=== PATIENT | female | born 1975 | race Hispanic/Latino ===

== ENCOUNTER 2018-01-15 15:47 | Emergency (ER) | payer SELFPAY ==
[~2018-01-15] VITALS: Ht 170.2 cm; Wt 86.2 kg
[~2018-01-15 15:47] MED LIST: ASPIRIN81 M4 PO; ATORVASTATIN CA40 M1 PO; LIPITOR20 M2 PO; TOPROL XL25 M1 PO
[2018-01-15 15:59] VITALS: BP 131/83
[2018-01-15] MEDS ORDERED: MULTIVITAMINS1 EAC9 PO (17:01)
--- NOTE | 2018-01-15 17:05 | ED EAR COMPLAINT ---
History of Present Illness General Chief Complaint: Ear Complaints Stated Complaint: L EAR CLOGGED Source: patient Exam Limitations: no limitations Vital Signs & Intake/Output Vital Signs & Intake/Output Vital Signs Date Time Temp Pulse Resp B/P B/P Pulse O2 O2 Flow FiO2 Mean Ox Delivery Rate 01/15 1559 97.1 92 18 131/83 98 Room Air Allergies Coded Allergies: almond (Severe, 07/30/16) apple (Severe, 07/30/16) Reconcile Medications Multiple Vitamin (Multivitamins) 1 EACH TABLET 1 TAB PO DAILY VITAMIN ( Reported) Triage Note: PT TO TRIAGE WITH COMPLAINTS OF L EAR BEING CLOGGED AND SINUS PRESSURE. PT BOUGHT OTC EAR WAX REMOVAL KIT YESTERDAY AND HAD NO RESULTS Triage Nurses Notes Reviewed? yes Onset: Gradual Duration: day(s): (2) Timing: remote history Injury Environment: home Severity: moderate Severity Numbers: 7 No Modifying Factors: none : No Patient currently breastfeeds: No HPI: Patient is a 42-year-old female presenting to the emergency Department chief complaint of left ear clot that started yesterday evening. Tried using over-the -counter drops without relief. Pain is moderate. Achy and throbbing. Pain does not radiate. Patient also reports muffled hearing. History similar symptoms with cerumen impaction in the past. No nausea vomiting fever chills chest pain or shortness of breath. Denies any discharge in the area. She does report that symptoms worsen after she was cleaning her ear with a face cloth and sticking in her ear. (Marleny Anthony) Past History Travel History Traveled to [place] past 21 day No Medical History Any Pertinent Medical History? see below for history Neurological: TIA EENT: NONE Cardiovascular: NONE Respiratory: NONE Gastrointestinal: NONE Hepatic: NONE Renal: NONE Musculoskeletal: NONE Psychiatric: NONE Endocrine: NONE History of MRSA: No History of VRE: No History of CDIFF: No Surgical History Surgical History: none, N Psychosocial History Services at Home None What is your primary language German Tobacco Use: Current Daily Use Daily Tobacco Use Amount/Type: => 5 Cigarettes daily ETOH Use: denies use Illicit Drug Use: denies illicit drug use Family History Family History, If Any: MOTHER FH: hypertension Hx Contributory? No (Marleny Anthony) Review of Systems Review of Systems Constitutional: Reports: no symptoms. Comments Review of systems: See HPI, All other systems negative. Constitutional, no chills fever or weight loss HEENT: No visual changes no sore throat no congestion Cardiovascular: No chest pain ,palpitation , orthopnea Skin, no jaundice no rashes Respiratory: No dyspnea cough sputum or hemoptysis GI: No nausea no vomiting Muscle skeletal: no back pain, no neck pain, Neurologic: No numbness Immunology: No splenectomy or history of AIDS (Marleny Anthony) Physical Exam Physical Exam General Appearance: well developed/nourished, no apparent distress, alert, awake , comfortable Ears: Left: other (cerumen impaction). Comments: Well-developed well-nourished person in no acute distress HEENT: Pupils equally round and reactive to light and accommodation. Nose is atraumatic. External auditory canal and tympanic membrane clear on the right, external canal on the left is blocked with cerumen. Unable to visualize TM. Pharynx normal. No swelling or edema. Neck: Normal inspection Respiratory: No respiratory distress. Extremity: No edema Neuro: Alert oriented x3 Skin: No appreciable rash on exposed skin, skin is warm and dry. Psych: Mood and affect is normal, memory and judgment is normal. (Marleny Anthony) Progress Differential Diagnoses I considered the following diagnoses in my evaluation of the patient: Scerumen impaction, otitis media, otitis externa Plan of Care: Patient's ear was irrigated with saline, able to flush her external canal. TM is clear. Small abrasion of the external canal after being irrigated. Patient tolerated procedure well. Initial ED EKG: none (Marleny Anthony) Departure Departure Time of Disposition: 1713 Disposition: HOME OR SELF CARE Condition: Stable Clinical Impression Primary Impression: Cerumen impaction Qualifiers: Laterality: left Qualified Code: H61.22 - Impacted cerumen, left ear Referrals: Gabriel Torres MD (PCP/Family) Additional Instructions: Follow-up with your primary care physician, call to make an appointment. Return for worsening symptoms or concerns. Departure Forms: Customer Survey General Discharge Information (Marleny Anthony) PA/HIV CTS SPECIALIST Co-Sign Statement Statement: ED Attending supervision documentation- [] I saw and evaluated the patient. I have also reviewed all the pertinent lab results and diagnostic results. I agree with the findings and the plan of care as documented in the PA's/HIV CTS SPECIALIST's documentation. [x] I have reviewed the ED Record and agree with the PA's/HIV CTS SPECIALIST's documentation. [] Additions or exceptions (if any) to the PAs/HIV CTS SPECIALIST's note and plan are summarized below: [] (Anthony Moore DO)
== END 2018-01-15 17:14 ==
LOC: ERH 15:47
DX: H61.22 Impacted cerumen, left ear (principal)